=== PATIENT | female | born 1985 | race Caucasian/White ===

== ENCOUNTER 2021-10-25 18:23 | Emergency (ER) | payer OTHER, SELFPAY ==
[2021-10-25 18:34] VITALS: BP 119/72; PULSE 62; RESP 18; TEMP 36.5; O2SAT 100
--- NOTE | 2021-10-25 18:44 | ED.SKABFB ---
HPI - Skin/Abscess/Foreign Bdy General Chief complaint: Skin/Abscess/Foreign Body Stated complaint: Cyst on Back Time Seen by Provider: 10/25/21 18:50 Source: patient Mode of arrival: ambulatory Limitations: no limitations History of Present Illness HPI narrative: 36 y/o female presented for complaint of cyst on the right lower back. She states the cyst has been present for over 1 month, but states she aggravated it yesterday. She states that when she first noticed the nodule it was pea-sized, flat, and skin colored. After feeling it yesterday she notes it has increased in size. States it is uncomfortable but denies significant pain. Endorses redness to the site. She denies any drainage. She has applied warm compresses and taken Tylenol. No other areas of similar symptoms reported. MD complaint: rash Related Data Allergies Allergy/AdvReac Type Severity Reaction Status Date / Time No Known Allergies Allergy Unknown Verified 10/25/21 18:51 Review of Systems Review of Systems: CONSTITUTIONAL: Denies body aches, fever, chills, or sweats. EYES: Denies visual changes, redness, or discharge. ENT: Denies rhinorrhea, congestion, sore throat, or otalgia. CARDIOVASCULAR: Denies chest pain, palpitations, or edema. RESPIRATORY: Denies cough or dyspnea. GASTROINTESTINAL: Denies abdominal pain, nausea, vomiting, or diarrhea. GENITOURINARY: Denies dysuria or hematuria. SKIN: Endorses cyst MUSCULOSKELETAL: Denies back pain, joint pain, or myalgia. NEUROLOGIC: Denies headache, numbness, tingling, or weakness. PSYCH: Denies depression or anxiety. PMFSH Comments At time of signature, I have reviewed and agree with nursing past medical, surgical, social and family history unless otherwise noted. Please see nursing chart for further information. There is no relevant family history pertinent to the presenting complaint Exam Narrative: GENERAL: Well-appearing, well-nourished HEAD: Normocephalic, atraumatic. EYES: conjunctivae clear, and EOMI. ENT: Mucous membranes moist. Oropharynx without edema, erythema or lesions. NECK: Supple. No lymphadenopathy CHEST: Clear to auscultation. No respiratory distress. HEART: Regular rate and rhythm. SKIN: Warm, dry. Right flank with subcutaneous nodule approx 2cm diameter, surrounding erythema/induration is [id number]; area is firm without fluctuance or active drainage. Slightly tender with palpation. NEURO: Alert and oriented x3. PSYCH: Normal mood and affect Course Course Emergency Course: Patient is aware of diagnosis, understands and agrees to treatment plan. Anticipatory guidance given. Patient agrees to follow-up as directed and is aware of reasons to seek care at the emergency department. Portions of this record may have been created with voice recognition software Level of Care: Express Care Visit Vital Signs Vital signs: Vital Signs Temperature 97.7 F 10/25/21 18:34 Pulse Rate 62 10/25/21 18:34 Respiratory Rate 18 10/25/21 18:34 Blood Pressure 119/72 10/25/21 18:34 Pulse Oximetry 100 10/25/21 18:34 Temperature 97.7 F 10/25/21 18:34 Pulse Rate 62 10/25/21 18:34 Respiratory Rate 18 10/25/21 18:34 Blood Pressure 119/72 10/25/21 18:34 Pulse Oximetry 100 10/25/21 18:34 Reviewed MDM - Skin/Abscess/Foreign Bdy MDM Narrative Medical decision making narrative: Patient looks well, nontoxic, afebrile; appropriate for initial outpatient treatment; discussed the importance of follow-up, patient agrees Instructed patient to go to nearest ER immediately for any worsening symptoms including but not limited to: fever, spreading rash, pain, sore throat, headache, dizziness, chest pain, trouble breathing, or any symptoms concerning to the patient. Differential Diagnosis Differential diagnosis: Likely abscess of skin or subcutaneous tissue, urticaria, herpes zoster, cellulitis, insect bites and contact dermatitis Discharge Plan Discharge Clinical Impression
== END 2021-10-25 19:00 | disposition home or self-care (01) ==
PROVIDERS: Emergency Provider Nurse Practitioner Family
DX: R22.2 Localized swelling, mass and lump, trunk (principal)
CPT/HCPCS: 99213; G0463